=== PATIENT | female | born 1990 | race Caucasian/White ===

== ENCOUNTER 2017-10-14 05:29 | Emergency (ER) | payer SELFPAY ==
[~2017-10-14] VITALS: Ht 152.4 cm; Wt 50.2 kg
[2017-10-14 06:55] LABS: URINE BILIRUBIN - DIPSTICK NEGATIVE (NEGATIVE); URINE BLOOD DIPSTICK NEGATIVE (NEGATIVE); URINE COLOR YELLOW; URINE GLUCOSE - DIPSTICK NEGATIVE (NEGATIVE); URINE KETONE NEGATIVE (NEGATIVE); URINE LEUK ESTERASE NEGATIVE (NEGATIVE); URINE NITRITE - DIPSTICK NEGATIVE (Negative); URINE PROTEIN - DIPSTICK NEGATIVE (NEG-TRACE); URINE SPECIFIC GRAVITY 1.025; URINE UROBILINOGEN - DIPSTICK 0.2 E.U./dL (0.2)
[2017-10-14 06:55] LABS: HEMATOCRIT 45.7 % (37.0-47.0); HEMOGLOBIN 15.3 g/dl (12.0-16.0); IMMATURE GRANULOCYTES 0.4 % (0.0-1.0); MEAN CELL VOLUME 95.2 fL CALC (80.0-100.0); MEAN CORPUSCULAR HGB 31.9 pG CALC (26.0-32.0); MEAN CORPUSCULAR HGB CONC 33.5 g/L CALC (32.0-36.0); NEUT# 8.23 thou/uL (2.00-7.15); RED BLOOD COUNT 4.8 mill/uL (4.20-5.60); RED CELL DISTRI WIDTH 12.4 % (11.5-15.5)
[2017-10-14 06:58] LABS: URINE CLARITY CLEAR
[2017-10-14 07:12] LABS: ALBUMIN 4.5 g/dL (3.2-5.0); ALKALINE PHOSPHATASE 91 u/l (38-126); AMYLASE 69 u/l (30-110); ANION GAP 16 (6-22 (CALC)); BILIRUBIN, TOTAL 0.2 mg/dL (0.0-1.4); BUN 14 mg/dL (7-17); BUN/CREATININE RATIO 20 (12-20 (CALC)); CARBON DIOXIDE 27 mmol/l (22-30); CHLORIDE 101 mmol/l (95-108); CREATININE 0.7 mg/dL (0.5-1.0); GFR > 60 ML/MIN (>=60 (CALC)); GFR FOR AFR.AMER. > 60 ML/MIN (>=60 (CALC)); LIPASE 55 u/l (23-300); POTASSIUM 4.7 mmol/l (3.5-5.1); SGOT/AST 32 u/l (14-36); SGPT/ALT 31 u/l (9-52); SODIUM 140 mmol/l (137-146); TOTAL PROTEIN 7.2 g/dL (6.3-8.2)
[2017-10-14] MEDS ORDERED: BENTYL10 MG PO (09:10)
[2017-10-14] MEDS ORDERED: METRONIDAZOL250 MG PO (09:10)
[2017-10-14] MEDS ORDERED: ZOFRAN4 MG/TAB PO (09:10)
[2017-10-14 10:04] VITALS: BP 97/56
== END 2017-10-14 10:04 | disposition home or self-care (01) | DRG 392 ==
LOC: ED 05:29
PROVIDERS: Emergency Medicine
DX: R10.31 Right lower quadrant pain (principal); R11.0 Nausea; R19.7 Diarrhea, unspecified
CPT/HCPCS: Q9967